=== PATIENT | female | born 1960 | race Two or more races ===

== ENCOUNTER 2024-08-25 12:02 | Emergency (ER) | payer OTHER ==
[~2024-08-25] VITALS: Ht 152.4 cm; Wt 90.3 kg
[2024-08-25] MEDS ORDERED: RELAFEN DS1000 MG PO (12:16)
[2024-08-25] MEDS ORDERED: ATORVASTATIN CA20 MG PO (12:16)
[2024-08-25] MEDS ORDERED: PRILOSEC OTC20 MG (12:17)
[2024-08-25] MEDS ORDERED: FLEXERIL (12:17)
[2024-08-25] MEDS ORDERED: NORFLEX (12:17)
[2024-08-25] MEDS ORDERED: COZAAR50 MG PO (12:18)
[2024-08-25] MEDS ORDERED: TRAYENTA (12:18)
[2024-08-25] MEDS ORDERED: SYNTHROID75 MCG PO (12:18)
[2024-08-25] MEDS ORDERED: CARDIZEM30 MG PO (12:19)
[2024-08-25 12:22] VITALS: BP 146/81; O2SAT 95
[2024-08-25] MEDS ORDERED: KETOROLAC TROMETHAMINE 60 MG VIAL IM ONE ×2 (13:15→13:26)
[2024-08-25] MEDS ORDERED: TRIAMCINOLONE ACETONIDE 40 MG/ML VIAL IM ONE (13:15)
[2024-08-25] MEDS ORDERED: DICLOFENAC SODI75 MG PO (13:20)
[2024-08-25] MEDS ORDERED: TRIAMCINOLONE ACETONIDE 40 MG/ML VIAL ONE (13:26)
== END 2024-08-25 13:31 | disposition home or self-care (01) ==
LOC: ER 12:05
DX: M54.9 Dorsalgia, unspecified (principal); I10 Essential (primary) hypertension
CPT/HCPCS: 96372; 99282; J1885; J3301